=== PATIENT | male | born 1975 | race Native Hawaiian/Other Pacific Islander ===

== ENCOUNTER 2022-07-27 08:10 | Emergency (ER) | payer OTHER ==
[~2022-07-27] VITALS: Ht 172.7 cm; Wt 63.5 kg
[2022-07-27 08:48] LABS: PLATELET COUNT 315 K/uL (142-355)
[2022-07-27 09:00] LABS: POTASSIUM 3.2 mmol/L (3.6-5.2)
[2022-07-27 11:50] VITALS: BP 168/94; TEMP 97.9
== END 2022-07-27 11:50 | disposition home or self-care (01) ==
LOC: ED 08:10
PROVIDERS: Emergency Medicine
DX: N13.2 Hydronephrosis with renal and ureteral calculous obstruction (principal)
CPT/HCPCS: 36415; 80053; 81000; 83690; 85027; 96360; 96374; 96375; 96376; 99284; J0360; J2270; J2405